=== PATIENT | male | born 2000 | race Caucasian/White ===

== ENCOUNTER 2024-03-25 05:09 | Emergency (ER) | payer OTHER ==
[2024-03-25] MEDS: Octyl 2-Cyanoacrylate 1 g/1 mL 1 APPLIC PEN TOP ONE (05:36)
[2024-03-25] MEDS: Ibuprofen 600 MG Tab PO ONE (06:39)
== END 2024-03-25 06:45 | disposition home or self-care (01) ==
LOC: MW.ED 05:09
DX: S06.9X9A Unspecified intracranial injury with loss of consciousness of unspecified duration, initial encounter (principal); S01.111A Laceration without foreign body of right eyelid and periocular area, initial encounter; W22.8XXA Striking against or struck by other objects, initial encounter; Y99.0 Civilian activity done for income or pay
CPT/HCPCS: 70450; 70486; 72125; 99284; A9270; 12011; 99283